=== PATIENT | male | born 1965 | race Caucasian/White ===

== ENCOUNTER 2024-06-17 16:02 | Inpatient (IN) | payer MEDICARE, OTHER ==
[~2024-06-17] VITALS: Ht 175.3 cm; Wt 138.7 kg
[2024-06-17 18:19] VITALS: BP 145/76
[2024-06-17] MEDS ORDERED: K-Dur10 MEQ PO (18:22)
[2024-06-17] MEDS ORDERED: METF500C PO (18:23)
[2024-06-17] MEDS ORDERED: INSULIN AS100 UNIT/6 SC (18:25)
[2024-06-17] MEDS ORDERED: FURO20 PO (18:26)
[2024-06-17] MEDS ORDERED: LISI20 PO (18:26)
[2024-06-17] MEDS ORDERED: ALBUTEROL0.63 MG/3 INH (18:28)
[2024-06-17] MEDS ORDERED: ALBU90OI INH (18:29)
[2024-06-17] MEDS ORDERED: GABA400 PO (18:30)
[2024-06-17] MEDS ORDERED: ANORO ELLIPTA1 EACH INH (18:31)
[2024-06-17] MEDS ORDERED: Carvedilol12.5 MG PO (18:31)
[2024-06-17] MEDS ORDERED: GEMF600 PO (18:32)
[2024-06-17] MEDS ORDERED: XARELTO20 MG PO (18:32)
[2024-06-17] MEDS ORDERED: Hydrocodone-Ap1 EA26 PO (18:34)
[2024-06-17] MEDS ORDERED: MELO7.5 PO (18:35)
[2024-06-17] MEDS ORDERED: OMEP20ER PO (18:35)
[2024-06-17] MEDS ORDERED: PRED20 PO (18:35)
--- NOTE | 2024-06-17 19:17 | NUR ---
Admission note Pt direct admit from [facility] with DX of elevated troponin. Pt arrived to room 181 via gurney, pt transferred to bed sba, quick admit and med rec completed. Hospitalist Geronimo notified, pt oriented to room and call system, call light in reach. Report given to BARBIE ALAS
[2024-06-17 20:03] VITALS: BP 135/87
[2024-06-17] MEDS ORDERED: HYDROcodone 7.5-APAP 325 TAB PO PRN (20:50)
[2024-06-17] MEDS ORDERED: Ipratropium/Albuterol SulF 2.5-0.5MG/3 ML Amp INH PRN (20:52)
[2024-06-17] MEDS ORDERED: Acetaminophen 325 MG TABLET PO PRN (20:55)
[2024-06-17] MEDS ORDERED: Bisacodyl 10 MG Supp PR PRN (20:55)
[2024-06-17] MEDS ORDERED: FLU VACC TS2024-25(6MOS UP)/PF 45 MCG/0.5 ML SYRINGE IM SCH (20:55)
[2024-06-17] MEDS ORDERED: Docusate Sodium 100 MG Cap PO SCH (21:00)
[2024-06-17] MEDS ORDERED: Lactobacil 2-S.Thermo-Bifido 1 1 Cap PO SCH (21:00)
[2024-06-17] MEDS ORDERED: Gabapentin 400 MG Cap PO SCH (21:00)
[2024-06-17] MEDS ORDERED: Gemfibrozil 600 MG Tab PO SCH (21:00)
[2024-06-17] MEDS ORDERED: Magnesium Hydroxide Conc 10 ML UDC PO PRN (21:00)
[2024-06-17] MEDS ORDERED: Sennosides 8.6 MG Tab PO SCH (21:00)
[2024-06-17] MEDS ORDERED: Furosemide 10 MG / ML 2ML Vial IV SCH (21:00)
[2024-06-17] MEDS ORDERED: Carvedilol 6.25 MG Tab PO SCH (21:00)
[2024-06-17] MEDS ORDERED: Albuterol HFA200 ACT/6.7 GM INH INH PRN (21:40)
[2024-06-17] MEDS ORDERED: Ipratropium/Albuterol SulF 2.5-0.5MG/3 ML Amp INH SCH ×2 (21:40→21:45)
[2024-06-17] MEDS ORDERED: MethylPREDNISolone Sod Succ 40 MG VIAL IV SCH (21:47)
[2024-06-17] MEDS ORDERED: Furosemide 10 MG/ML 4ML Vial IV SCH (22:00)
[2024-06-17] MEDS ORDERED: Azithromycin 250 MG Tab PO SCH (22:00)
[2024-06-18 00:17] LABS: Adenovirus Not Detected (NOT DETECT); Coronavirus 229E Not Detected (NOT DETECT); Coronavirus HKU1 Not Detected (NOT DETECT); Coronavirus NL63 Not Detected (NOT DETECT); Coronavirus OC43 Not Detected (NOT DETECT); Human Metapneumovirus Not Detected (NOT DETECT); Human Rhinovirus/Enterovirus Not Detected (NOT DETECT); Influenza A/2009-H1 Not Detected (NOT DETECT); Influenza A/H1 Not Detected (NOT DETECT); Influenza A/H3 Not Detected (NOT DETECT); Influenza B Not Detected (NOT DETECT); Parainfluenza Virus 1 Not Detected (NOT DETECT); Parainfluenza Virus 2 Not Detected (NOT DETECT); Parainfluenza Virus 3 Not Detected (NOT DETECT); Parainfluenza Virus 4 Not Detected (NOT DETECT); SARS-Cov-2 (COVID-19), BioFire Not Detected (NOT DETECT)
[2024-06-18 00:18] LABS: Bordetella pertussis Not Detected (NOT DETECT); Chlamydophila pneumoniae Not Detected (NOT DETECT); Mycoplasma pneumoniae Not Detected (NOT DETECT); Respiratory Syncytial Virus Not Detected (NOT DETECT)
[2024-06-18 02:29] VITALS: BP 142/72
[2024-06-18 03:32] LABS: BASOPHILS ABSOLUTE AUTO 0.02 K/mm3 (0.00-0.23); BASOPHILS PERCENT AUTO 0 % (0-2); EOSINOPHILS PERCENT AUTO 0 % (0-6); Hematocrit 37.5 % (37.0-53.0); Hemoglobin 12.1 g/dL (13.5-17.5); IMMATURE GRAN ABSOLUTE AUTO 0.03 K/mm3 (0.00-0.10); IMMATURE GRAN PERCENT AUTO 1 % (0-1); LYMPHOCYTES ABSOLUTE AUTO 0.38 K/mm3 (0.84-5.20); LYMPHOCYTES PERCENT AUTO 8 % (21-46); MONOCYTES ABSOLUTE AUTO 0.21 K/mm3 (0.16-1.47); MONOCYTES PERCENT AUTO 4 % (4-13); Mean Corpuscular HGB 28.9 pg (26.0-34.0); Mean Corpuscular HGB Conc 32.3 g/dL (31.5-36.5); Mean Corpuscular Volume 90 fL (80-100); Mean Platelet Volume 10.2 fL (9.1-12.4); NEUTROPHILS ABSOLUTE AUTO 4.39 K/mm3 (1.96-9.15); NEUTROPHILS PERCENT AUTO 87 % (41-73); Platelet Count 168 K/mm3 (150-400); RDW Coefficient Variation 13.6 % (11.7-14.2); RDW Standard Deviation 44.7 fL (35.1-46.3); Red Blood Cell Count 4.18 M/mm3 (4.30-5.90); White Blood Cell Count 5.03 K/mm3 (4.00-11.30)
[2024-06-18 03:58] LABS: Albumin, Blood 3.7 g/dL (3.4-5.0); Albumin/Globulin Ratio 1.1 (0.8-1.8); Bilirubin, Total 0.7 mg/dL (0.1-1.0); Calcium, Blood 9.5 mg/dL (8.5-10.1); Creatinine, Blood 0.92 mg/dL (0.60-1.20); Globulin, Blood 3.4 g/dL (2.2-4.0); Magnesium, Blood 1.2 mg/dL (1.6-2.4); Phosphorus, Blood 3.9 mg/dL (2.5-4.9); Potassium, Blood 4.1 mmol/L (3.5-5.5); Total Protein, Blood 7.1 g/dL (6.4-8.2)
[2024-06-18] MEDS ORDERED: Omeprazole 20 MG CapCR PO SCH (06:00)
--- NOTE | 2024-06-18 06:16 | NUR ---
Patient alert and oriented x3, VSS, tolerating room air well in bed. PRN pain medication given once overnight, tolerated well. Scheduled IV steroids, lasix tolerated well, patient complaining of BLE cramping. Bipap tolerated poorly, frequent breaks required for tolerance. Patient using urinal and ambulating to restroom with standby assistance as needed.
[2024-06-18 07:22] VITALS: BP 163/81
[2024-06-18] MEDS ORDERED: Magnesium Sulf 2 GM/Water 50ML 50 ML IV STA (08:13)
[2024-06-18] MEDS ORDERED: Insulin Human Lispro 100 Units/ML 3ML Syringe SC SCH (08:30)
[2024-06-18] MEDS ORDERED: NS 250 ML IV PRN (08:35)
[2024-06-18] MEDS ORDERED: Carvedilol 6.25 MG Tab PO SCH (09:00)
[2024-06-18] MEDS ORDERED: Aspirin 81 MG Chew PO SCH (09:00)
[2024-06-18] MEDS ORDERED: Insulin Glargine-Yfgn 100 Unit/mL 3 ML SYR SC SCH ×2 (09:00)
[2024-06-18] MEDS ORDERED: Furosemide 20 MG Tab PO SCH (09:00)
[2024-06-18] MEDS ORDERED: PredniSONE 20 MG Tab PO SCH (09:00)
[2024-06-18] MEDS ORDERED: Lisinopril 20 MG Tab PO SCH (09:00)
[2024-06-18 15:16] VITALS: BP 143/87
[2024-06-18] MEDS ORDERED: Rivaroxaban 10 MG Tab PO SCH (17:00)
[2024-06-18] MEDS ORDERED: Polyethylene Glycol 3350 17 gm PO PRN (17:05)
--- NOTE | 2024-06-18 17:52 | NUR ---
PT A&OX4, VSS, RA, CONTINUOUS PULSE OX SPO2 90S, ON TELE V-PACED IN 60S, SBA IN ROOM. SPOKE WITH DR. THOMSON ABOUT MAGNESIUM AND PT COMPLAINT OF CRAMPING WITH LASIX. 2 G MG IV GIVEN, LASIX TO RESUME IN THE MORNING. PART 1 OF STRESS TEST COMPLETED TODAY, PART 2 TO BE DONE TOMORROW. PT TO HAVE NO CAFFEINE UNTIL AFTER SCAN TOMORROW, NPO AFTER BREAKFAST OTHER THAN WATER UNTIL INJECTION AT 1330, IMAGING AT 1430. ECHO DONE TODAY, EF 40-45% WITH LV HYPOKINESIS. 300 MEASURED UO, TWO UNMEASURED BRP, UP TO TRY FOR BM, 1 MODERATE SOFT BROWN BM THIS SHIFT. BIPAP OVER NIGHT.
[2024-06-18 20:22] VITALS: BP 140/77
[2024-06-18] MEDS ORDERED: Docusate Sodium/Senna 1 Tab PO SCH (21:00)
[2024-06-19 03:08] VITALS: BP 119/78
--- NOTE | 2024-06-19 04:59 | NUR ---
[facility] SUMMARY NO ACUTE CHANGES OVERNIGHT. PT WORE HIS BIPAP FOR SLEEP. ANTICIPATING THE REST OF HIS TESTING WILL BE COMPLETED IN [employer] TODAY AT 1330. PT MAY EAT BREAKFAST (NO CAFFEINE) AND THEN NPO EXCEPT WATER UNTIL TESTING COMPLETE.
[2024-06-19 05:56] LABS: Hematocrit 37.1 % (37.0-53.0); Mean Corpuscular HGB 29.1 pg (26.0-34.0); Mean Corpuscular HGB Conc 32.3 g/dL (31.5-36.5); Mean Corpuscular Volume 90 fL (80-100); Mean Platelet Volume 9.8 fL (9.1-12.4); Platelet Count 180 K/mm3 (150-400); RDW Coefficient Variation 13.4 % (11.7-14.2); RDW Standard Deviation 44.2 fL (35.1-46.3); Red Blood Cell Count 4.12 M/mm3 (4.30-5.90); White Blood Cell Count 6.43 K/mm3 (4.00-11.30)
[2024-06-19 06:38] LABS: Albumin, Blood 3.5 g/dL (3.4-5.0); Anion Gap 12 mmol/L (3-11); Blood Urea Nitrogen 29 mg/dL (8-24); Bun/Creatinine Ratio 36.3 (12.0-20.0); CO2, Blood 27 mmol/L (21-32); Calcium, Blood 8.9 mg/dL (8.5-10.1); Chloride, Blood 101 mmol/L (98-108); Glomerular Filtration Rate 101 (60-); Glucose, Blood 253 mg/dL (70-99); Magnesium, Blood 1.8 mg/dL (1.6-2.4); Phosphorus, Blood 4.9 mg/dL (2.5-4.9); Potassium, Blood 4.5 mmol/L (3.5-5.5); Sodium, Blood 135 mmol/L (136-145)
[2024-06-19 07:34] VITALS: BP 116/52
[2024-06-19] MEDS ORDERED: Regadenoson 0.4 MG/5 ML SYRINGE ONE (13:08)
[2024-06-19] MEDS ORDERED: Caffeine Citrated 60 MG/3 ML Vial ONE (13:08)
[2024-06-19] MEDS ORDERED: Magnesium Oxide 400 MG Tab PO ONE (15:25)
[2024-06-19] MEDS ORDERED: LORazepam 0.5 MG Tab PO PRN (15:30)
[2024-06-19] MEDS ORDERED: HYDROcodone 7.5-APAP 325 TAB PO PRN (15:30)
[2024-06-19 15:44] VITALS: BP 139/69
--- NOTE | 2024-06-19 17:16 | NUR ---
Pt A&Ox4, VSS, RA, V-paced on tele. Stress test completed today, results pending. Lasix given this morning with good UO, however pt complains of cramping in his legs. MD aware, Magnesium supplement given along with ativan. [place] increased frequency from Q8 hours to Q4 hours to help contol pt chronic back pain. SBA to bathroom. Pt denies SOB and CP.
[2024-06-19 19:43] VITALS: BP 153/74
[2024-06-19] MEDS ORDERED: Ciprofloxacin 500 MG Tab PO SCH (21:00)
[2024-06-20 02:43] VITALS: BP 132/75
--- NOTE | 2024-06-20 03:09 | NUR ---
PT AGITATED AT SHIFT CHANGE AND C/O ABOUT MD COMMENTS AND FAILURE TO FOLLOW THROUGH. PT RESTING QUIETLY IN BED WITH EYES CLOSED AT THIS TIME. NO DISTRESS NOTED.
[2024-06-20 06:28] LABS: Bun/Creatinine Ratio 45.8 (12.0-20.0); Calcium, Blood 9.9 mg/dL (8.5-10.1); Creatinine, Blood 0.72 mg/dL (0.60-1.20); Potassium, Blood 4.5 mmol/L (3.5-5.5)
[2024-06-20 07:06] VITALS: BP 119/61
[2024-06-20] MEDS ORDERED: PredniSONE 20 MG Tab PO SCH (09:00)
[2024-06-20 09:48] LABS: CHOL/HDL RATIO 6.7; Cholesterol 180 mg/dL (50-200); HDL Cholesterol 27 mg/dL (>39); LDL/HDL RATIO 4.1; Low Density Lipoprotein Chol 111 mg/dL (0-110); Triglycerides 209 mg/dL (30-160); Very Low Density Lipoprot Chol 41 mg/dL (6-32)
[2024-06-20] MEDS ORDERED: Empagliflozin 10 MG TAB PO SCH (11:00)
[2024-06-20] MEDS ORDERED: Spironolactone 25 MG Tab PO SCH (11:00)
[2024-06-20 15:00] VITALS: BP 131/66
[2024-06-20] MEDS ORDERED: Magnesium Oxide 400 MG Tab PO ONE (16:15)
--- NOTE | 2024-06-20 17:37 | NUR ---
PATIENT IS A&OX4, ABLE TO MAKE NEEDS KNOWN, INDEPENDENT IN ROOM. PATIENT IS CONTINENT AND USES TOILET/URINAL. PATIENT RECEIVED TEACHING ON HOW TO REDUCE SODIUM IN DIET AND AMOUNT OF FLUIDS HE SHOULD DRINK ON A DAILY BASIS, ALSO HAD TEACHING ON DIABETES MANAGEMENT, PATIENT RECEPTIVE TO TEACHINGS. PATIENT IS ON TELE, VENTRICULAR PACED AT 60 AT 1722. PATIENTS BED IS IN LOW POSITION AND CALL LIGHT IS WITHIN REACH.
[2024-06-20 20:03] VITALS: BP 130/73
[2024-06-20] MEDS ORDERED: Rosuvastatin Calcium 10 MG Tab PO SCH (21:00)
[2024-06-21] VITALS (14 sets, daily range): BP systolic 101–154; BP diastolic 59–105
--- NOTE | 2024-06-21 04:13 | NUR ---
PT OOB UP TO SHOWER AND SHAVE FOR TELE APPLICATION. PT MAINTAINED NPO THROUGH THE NIGHT. PT RESTED QUIETLY THROUGH THE NIGHT. PT AWAKE, ALERT AND ORIENTED AT THIS TIME. PT DENIES C/O. NO DISTRESS NOTED. MOTH SWABS PROVIDED.
[2024-06-21] MEDS ORDERED: FentaNYL Citrate 50 MCG/ML 2 ML Injection IV ONE (05:35)
[2024-06-21 05:50] LABS: Hematocrit 46.9 % (37.0-53.0); Hemoglobin 15.4 g/dL (13.5-17.5); Mean Corpuscular HGB 29.3 pg (26.0-34.0); Mean Corpuscular HGB Conc 32.8 g/dL (31.5-36.5); Mean Corpuscular Volume 89 fL (80-100); Mean Platelet Volume 10.3 fL (9.1-12.4); Platelet Count 265 K/mm3 (150-400); RDW Coefficient Variation 13.8 % (11.7-14.2); RDW Standard Deviation 44.7 fL (35.1-46.3); Red Blood Cell Count 5.25 M/mm3 (4.30-5.90); White Blood Cell Count 9.94 K/mm3 (4.00-11.30)
[2024-06-21 06:08] LABS: International Normalized Ratio 1.12; Prothrombin Time Results 11.9 Sec (9.7-11.5)
[2024-06-21 06:33] LABS: Albumin, Blood 3.9 g/dL (3.4-5.0); Anion Gap 16 mmol/L (3-11); Blood Urea Nitrogen 49 mg/dL (8-24); Bun/Creatinine Ratio 45.4 (12.0-20.0); CO2, Blood 24 mmol/L (21-32); Calcium, Blood 10.1 mg/dL (8.5-10.1); Chloride, Blood 104 mmol/L (98-108); Creatinine, Blood 1.08 mg/dL (0.60-1.20); Glomerular Filtration Rate 78 (60-); Glucose, Blood 127 mg/dL (70-99); Magnesium, Blood 2.3 mg/dL (1.6-2.4); Phosphorus, Blood 6.3 mg/dL (2.5-4.9); Potassium, Blood 3.7 mmol/L (3.5-5.5); Sodium, Blood 140 mmol/L (136-145)
[2024-06-21] MEDS ORDERED: NiCARdipine HCL 1,000 MCG/5 ML SYR ONE (06:38)
[2024-06-21] MEDS ORDERED: NS 1,000 ML IV ONE ×2 (06:38→06:49)
[2024-06-21] MEDS ORDERED: Heparin Sodium 1000 Units/ML 10ML MDV ONE (06:38)
[2024-06-21] MEDS ORDERED: NS 250 ML IV ONE (06:38)
[2024-06-21] MEDS ORDERED: Nitroglycerin 2 MG/20 ML BTL ONE (06:38)
[2024-06-21] MEDS ORDERED: Midazolam HCl 1MG / ML 2ML Vial ONE (06:49)
[2024-06-21] MEDS ORDERED: FentaNYL Citrate 50 MCG/ML 2 ML Injection ONE (06:49)
--- NOTE | 2024-06-21 08:01 | NUR ---
Pt transferred from [facility] via heart center post angiogram. In need of COBRA transfer for CABG. Dr. Chun following for cardiology and doctor to doctor communication.
--- NOTE | 2024-06-21 10:20 | NUR ---
[place] of care: Recieved report from [facility] floor nurse at 0817. Pt arrived to PCU from [facility] around 0750. Tranfered from wheelchair to bed independently. Right radial site with TR band and arm board in place. No bleeding, brusing, or hematoma. Pt alert and oriented. He is cooperative to care. Right radial site otherwise skin intact, no breakdown noted. HR 60's-80's, ventricular paced/Afib, SBP 130's. He denies cp/pressure, numb/tingling. O2 >92% on RA, BIPAP at night 16/ RR: 14 l/s clear t/o. +bowel sounds, no tenderness on palpation. Provider at bedside this AM, discussed likely tranfer for CABG. Heparin ordered, will start at 11:30 per EMAR. Pts questions answered, no concerns at this time.
[2024-06-21] MEDS ORDERED: Heparin Sodium,Porcine/0.5 NS 500 ML IV SCH (11:30)
--- NOTE | 2024-06-21 11:54 | NUR ---
TR BAND RECOVERY PT ARRIVED TO PCU FROM DIRECTOR OF OCCUPATIONAL THERAPY AT 0750. TR BAND AND ARM BOARD IN PLACE OVER RIGHT RADIAL SITE. NO BLEEDING, BRUSING, OR HEMATOMA AT SITE. DRESSING INTACT. 2ML'S REMOVED AT 1035, ANOTHER 2 ML'S REMOVED AT 1050, AND ANOTHER 2 MLS, REMOVED AT 1100. NO BLEEDING, HEMATOMA, OR BRUSIING PRESENT. TEGADERM IN PLACE OVER SITE. PT TOLERATED WELL, NO COMPLAINTS.
--- NOTE | 2024-06-21 11:57 | NUR ---
Report given to Everette hoang at 1149. Transport scheduled for [id number].
--- NOTE | 2024-06-21 13:40 | NUR ---
TRANSFER SUMMARY: PT ALERT AND ORIENTED TO ALL. VSS. O2 >93% ON RA. HEPARIN DRIP RUNNING PER EMAR ORDER. TRANSPORT PACKET WITH [facility] TRANPORTER AND REPORT GIVEN. HE AMBULATED FROM [facility]IR TO [facility] INDEPENDENTLY. TELE REMOVED AND HE WAS PLACED ON [facility]'S MONITOR. PT TOLERATED WELL. RIGHT RADIAL SITE COVERED WITH CLEAR TEGADERM, NO BLEEDING BRUSING, OR HEMTOMA PRESENT. REPORT GIVEN TO FELA HARRELL NURSE. PT LEFT WITH [facility] AT 1335.
[2024-06-21] MEDS ORDERED: Sacubitril/Valsartan 24 MG-26 MG Tab PO SCH (18:00)
== END 2024-06-21 14:00 | disposition short-term general hospital (02) | DRG 280 ==
LOC: MEDS 16:02 → PCU 06-21 07:53
PROVIDERS: Family Medicine; Internal Medicine; Internal Medicine Cardiovascular Disease; ADMIT Hospitalist
PROC: 5A09357 Assistance with Respiratory Ventilation, Less than 24 Consecutive Hours, Continuous Positive Airway Pressure (ICD-10-PCS; principal; 2024-06-17)
PROC: 4A023N7 Measurement of Cardiac Sampling and Pressure, Left Heart, Percutaneous Approach (ICD-10-PCS; 2024-06-21)
PROC: B2111ZZ Fluoroscopy of Multiple Coronary Arteries using Low Osmolar Contrast (ICD-10-PCS; 2024-06-21)
PROC: B2151ZZ Fluoroscopy of Left Heart using Low Osmolar Contrast (ICD-10-PCS; 2024-06-21)
DX: I21.4 Non-ST elevation (NSTEMI) myocardial infarction (principal); I50.23 Acute on chronic systolic (congestive) heart failure; I48.19 Other persistent atrial fibrillation; J44.1 Chronic obstructive pulmonary disease with (acute) exacerbation; Z68.41 Body mass index [BMI] 40.0-44.9, adult; E66.01 Morbid (severe) obesity due to excess calories; I25.10 Atherosclerotic heart disease of native coronary artery without angina pectoris; E11.9 Type 2 diabetes mellitus without complications; G47.33 Obstructive sleep apnea (adult) (pediatric); G89.29 Other chronic pain; Z87.19 Personal history of other diseases of the digestive system; Z98.890 Other specified postprocedural states; Z87.891 Personal history of nicotine dependence; Z79.899 Other long term (current) drug therapy; Z95.0 Presence of cardiac pacemaker; Z86.73 Personal history of transient ischemic attack (TIA), and cerebral infarction without residual deficits; Z79.01 Long term (current) use of anticoagulants; Z79.84 Long term (current) use of oral hypoglycemic drugs; Z79.4 Long term (current) use of insulin; I25.2 Old myocardial infarction
CPT/HCPCS: 0202U; 36415; 71045; 76937; 78452; 80048; 80053; 80061; 80069; 82947; 83036; 83735; 83880; 84100; 84145; 84484; 85025; 85027; 85610; 85730; 93005; 93010; 93017; 93458; 93880; 94640; 94660; 94664; 94762; 99152; A9270; A9500; C1769; C1894; C8929; J0706; J1644; J1815; J1940; J2250; J2785; J2919; J3010; J3475; J7030; J7050; J7512; Q9967